=== PATIENT | female | born 1980 | race Asian ===

== ENCOUNTER 2021-09-19 14:02 | Outpatient (CLI) | payer BC ==
[2021-09-19 15:34] LABS: #Monocytes 0.5 10x3/uL (0.0-1.1); #Neutrophils 3.9 10x3/uL (1.5-8.4); %Basophils 0.3 % (0.0-2.0); %Eosinophils 0.5 % (0.0-6.0); %Lymphocytes 25.9 % (18.0-47.0); %Monocytes 8.6 % (0.0-10.0); %Neutrophils 64.5 % (40.0-75.0); Hemoglobin 11.7 g/dL (12.0-15.5); Mean Corpuscular HGB CONC 32.5 g/dL (32.0-36.0); Mean Corpuscular Hemoglobin 28.2 pg (27.0-33.0); Mean Corpuscular Volume 86.7 fl (81.6-98.3); Mean Platelet Volume 10.3 fl (7.4-10.4); Platelet Count 248 10x3/uL (150-450); Red Blood Cell (RBC) Count 4.15 10x6/uL (3.90-5.03); White Blood Cell (WBC) Count 6.1 10x3/uL (3.5-10.5)
[2021-09-19 15:40] LABS: Anion Gap 12 mmol/L (10-20); BUN (Urea Nitrogen) 9 mg/dL (7.0-18.7); Calc. Creatinine Clearance 0 mL/min (70-130); Carbon Dioxide 28 mmol/L (22-29); Chloride 104 mmol/L (98-107); Potassium 3.5 mmol/L (3.5-5.1); Sodium 140 mmol/L (136-145)
[2021-09-19 15:43] LABS: Calcium 9.7 mg/dL (7.8-10.44); Glucose 104 mg/dL (70-105)
[2021-09-19 23:17] LABS: SARS-CoV-2 PCR by NAA Not Detected (NotDetected)
== END 2021-09-19 14:03 | disposition home or self-care (01) ==
LOC: LABBT 14:02
PROVIDERS: ATTEND Specialist
DX: Z01.812 Encounter for preprocedural laboratory examination (principal); N63.23 Unspecified lump in the left breast, lower outer quadrant; Z20.822 Contact with and (suspected) exposure to COVID-19
CPT/HCPCS: 80048; 85025; U0003; U0005

== ENCOUNTER 2021-09-24 06:58 | Day surgery (SDC) | payer BC ==
[2021-09-20 13:49] VITALS: BMI 20.7
[2021-09-24] MEDS ORDERED: Acetaminophen 500 MG TAB ONE (07:20)
[2021-09-24] MEDS ORDERED: Ketorolac Tromethamine 30 MG/ML VIAL ONE (07:20)
[2021-09-24] MEDS ORDERED: Bupivacaine 0.25% 10 ML VIAL ONE (08:41)
[2021-09-24] MEDS ORDERED: Lidocaine 1% w/Epinephrine 1:100K 20 ML VIAL ONE (08:41)
[2021-09-24] MEDS ORDERED: fentaNYL Citrate/PF 100 MCG/2 ML SYRINGE ONE (08:49)
[2021-09-24] MEDS ORDERED: ceFAZolin (BATCH) 2 GM/100 ML BAG ONE (08:49)
[2021-09-24] MEDS ORDERED: PROPOFOL 200 MG/20 ML VIAL ONE (09:00)
[2021-09-24] MEDS ORDERED: Lidocaine 1% PF 5 ML VIAL ONE (09:00)
[2021-09-24] MEDS ORDERED: Ondansetron PF 4 MG/2 ML Vial ONE (09:00)
[2021-09-24] MEDS ORDERED: Dexamethasone 20 MG/5 ML VIAL ONE (09:00)
[2021-09-24] MEDS ORDERED: ePHEDrine 50 MG/ML VIAL ONE (09:00)
== END 2021-09-24 11:35 | disposition home or self-care (01) ==
LOC: SDC 06:58
PROVIDERS: ATTEND Specialist
DX: C50.512 Malignant neoplasm of lower-outer quadrant of left female breast (principal); L72.0 Epidermal cyst; Z17.0 Estrogen receptor positive status [ER+]; Z86.15 Personal history of latent tuberculosis infection
CPT/HCPCS: 76098; 88304; 88307; J0690; J1100; J1885; J2405; J2704; J3490; S0020